=== PATIENT | male | born 1970 | race Caucasian/White ===

== ENCOUNTER → 2016-11-21 | Outpatient (CLI) | payer BC ==
[~2016-11-21] MED LIST: KEFLEX500 MG PO; NO MEDICATIONS
--- NOTE | ~2016-11-21 | US115 ---
[facility] A Service of [facility] & [facility] & [facility] RADIOLOGY TEXT RESULTS PATIENT: DUSTIN CROWDER LOCATION: [place] : 66 UNIT #: [id number] AGE: [address]: BRE MANNING MD SEX: M ORDER DR: [id number] [address] [address] [id number] O MR#: [id number] Acc #: [id number] NAME: DUSTIN CROWDER : 1970 SEX: M STUDY DATE/TIME: 11/21/2016 10:42 UNIT: [facility] ROOM: STUDY DESCRIPTION: US Scrotum and Contents Attending Physician: Bre Manning Referring Physician: Bre Manning Ordering Physician: [id number] [id number] Fuchs Primary Care Physician: Pao Manning M.D. MEDICAL IMAGING REPORT This report is preliminary unless electronic signature is present. EXAM Ultrasound of scrotum and contents with color flow Doppler, 11/21/2016 HISTORY Palpable lump left testicle four days ago. Lump is painful. No known injury. FINDINGS Barahona-scale images of the scrotum were obtained as well as Doppler waveform, spectral analysis and color flow Doppler imaging. The right testicle measured 2.5 cm x 3 cm x 4.2 cm while the left testicle measured 2.2 cm x 2.6 cm x 4.2 cm. Both testes are homogeneous in echotexture and demonstrate no cystic or solid mass lesions. Color-flow Doppler images show normal blood flow to both testes. There are small bilateral hydroceles. IMPRESSION 1. The testes are normal bilaterally. No testicular mass is seen. Color-flow Doppler images show normal blood flow to both testes. 2. Small bilateral hydroceles. Dictated by... Ronnie Robbins M.D. THIS IS AN ELECTRONICALLY VERIFIED REPORT Ronnie Robbins M.D. at 11/23/2016 7:45 AM SVEN/álvaro TD: 11/22/2016 05:05 [facility] A Service of [facility] & [facility] & [facility] RADIOLOGY TEXT RESULTS PATIENT: DUSTIN CROWDER LOCATION: [facility] #: [id number] : [birth year] UNIT #: [id number] AGE: [address]: BRE MANNING MD SEX: M ORDER DR: JOB #: [id number] MEDICAL IMAGING REPORT Page 1 of 1
== END | disposition home or self-care (01) ==
LOC: SGUS 10:46
DX: N50.9 Disorder of male genital organs, unspecified (principal); N43.3 Hydrocele, unspecified
CPT/HCPCS: 76870